=== PATIENT | female | born 1980 | race Caucasian/White ===

== ENCOUNTER 2017-10-20 20:44 | Emergency (ER) | payer SELFPAY ==
[~2017-10-20] VITALS: Ht 162.6 cm; Wt 81.6 kg
[2017-10-20 20:50] VITALS: BP 120/80
[2017-10-20] MEDS ORDERED: ONDANSETRON 4 MG TAB.RAPDIS ONE (21:28)
[2017-10-20] MEDS ORDERED: BUTALB/APAP/CAFFEINE 1 EACH TABLET PO PRN (21:30)
[2017-10-20] MEDS ORDERED: BUTALB/APAP/CAFFEINE 1 EACH TABLET PO ONE (21:30)
[2017-10-20] MEDS ORDERED: ONDANSETRON 4 MG TAB.RAPDIS SL ONE (21:30)
[2017-10-20] MEDS ORDERED: BUTALB/APAP/CAFFEINE 1 EACH TABLET ONE (21:54)
== END 2017-10-20 23:24 | disposition home or self-care (01) ==
LOC: ER 20:46
DX: G43.909 Migraine, unspecified, not intractable, without status migrainosus (principal); E11.9 Type 2 diabetes mellitus without complications; Z88.0 Allergy status to penicillin
CPT/HCPCS: A4606; Q0162; Z7610